=== PATIENT | female | born 1970 | race Caucasian/White ===

== ENCOUNTER 2016-12-17 07:17 | Day surgery (SDC) | payer OTHER ==
[~2016-12-17 07:17] MED LIST: Buffered Lidocaine 1% SYRIN* 3 ML/SYR SYRINGE INTRADERM ONE; Famotidine IV* 10 MG/ML 2 ML (20 mg) IV ONE
[2016-12-17] MEDS ORDERED: Famotidine IV* 10 MG/ML 2 ML (20 mg) ONE (07:21)
[2016-12-17 07:31] LABS: Manual Entry Verification AS; UR Preg Internal Control QC Line Present; UR Preg Kit Lot# 6030156
[2016-12-17] MEDS ORDERED: Silver Nitrate/Potassium Nitr* 1 EA STICK ONE (08:17)
[2016-12-17] MEDS ORDERED: Midazolam* 1 MG/ML 5 ML VIAL (5 MG) ONE (08:48)
[2016-12-17] MEDS ORDERED: Chloroprocaine 2%* 20 ML VIAL ONE (08:48)
[2016-12-17] MEDS ORDERED: fentaNYL* 50 MCG/ML 2 ML VIAL (100 MCG VIAL) ONE (08:48)
[2016-12-17] MEDS ORDERED: Dexamethasone IV* 4 MG/ML 1 ML (4 MG) ONE (09:16)
[2016-12-17] MEDS ORDERED: Ondansetron INJ* 2 MG/ML VIAL ONE (09:16)
[2016-12-17] MEDS ORDERED: Ketorolac INJ* 30 MG/ML 1 ML VIAL ONE (09:16)
[2016-12-17] MEDS ORDERED: DiMENhydriNATE IV* 50 MG/ML VIAL IV PUSH PRN (09:57)
[2016-12-17] MEDS ORDERED: Acetaminophen TAB* 325 MG PO PRN (09:57)
[2016-12-17] MEDS ORDERED: oxyCODONE TAB* 5 MG TAB PO PRN (09:57)
[2016-12-17] MEDS ORDERED: Acetaminophen TAB* 325 MG ONE (10:35)
[2016-12-17 11:34] VITALS: BP 132/87
--- NOTE | 2016-12-17 12:46 | OP ---
DATE OF OPERATION: 12/17/16 [facility] DATE OF : 68 SURGEON: Jaylene Davis MD ANESTHESIOLOGIST: Dr. Novoa. ANESTHESIA: Spinal. PRE-OP DIAGNOSIS: Submucosal fibroid and menorrhagia. POST-OP DIAGNOSIS: Submucosal fibroid and menorrhagia. OPERATIVE PROCEDURE: Hysteroscopy, dilation and curettage, and MyoSure resection of submucosal fibroid. ESTIMATED BLOOD LOSS: Less than 10 cc. URINE OUTPUT: 100 cc. IV FLUID: 800 cc of lactated Ringer's. MATERIALS TO LAB: Submucosal fibroid fragments and endometrial curettings. INDICATIONS: The patient is a 46-year-old 5, para 3, who presented to the office with complaint of progressively worsening heavy periods. Office hysteroscopy was significant for an apparent submucosal fibroid seen. Considering this, the patient was counseled and consented for hysteroscopic resection of the fibroid to hopefully improve her bleeding. She was extensively counseled and consent was signed. FINDINGS: Normal-appearing uterus other than a fairly large submucosal fibroid protruding from the anterior wall. This was likely 1.5 to 2 cm in size. This was resected without difficulty. COMPLICATIONS: None. DESCRIPTION OF PROCEDURE: The risks, benefits, and alternatives were described to the patient and informed consent was obtained. The patient was taken to the operating room with IV running where ____ anesthesia was induced and found to be adequate. The patient was prepped and draped in the normal sterile fashion in the high lithotomy position in [facility]. A time-out was performed. The bladder was emptied. A bivalved speculum was placed in the vagina and a single tooth tenaculum was placed on the anterior cervix. The cervix was then gently dilated using Reagan's dilators to a size 27. At that time, the MyoSure hysteroscope was advanced through the cervix and into the uterine cavity without difficulty. The anterior submucosal fibroid was immediately visible. There were no other apparent abnormalities present. A regular-sized MyoSure was then prepared and then placed into the MyoSure scope. An [email or web address] fluid management system was used for management of the saline. The MyoSure was then used to completely resect the submucosal fibroid to the level of the surrounding endometrium. There are no other visible abnormalities seen. Both ostium were clearly visible and appeared normal. The hysteroscope was then removed. Hysteroscopic deficit was about 250 cc of normal saline. A medium banjo curette was then used to perform a curettage of the endometrial cavity and the small amount of curettings were collected on Telfa. The tenaculum was then removed from the cervix and there was excellent hemostasis present. The speculum was removed and the patient was returned to the supine position. The patient tolerated the procedure well. Sponge, lap, and needle counts were correct x2. [id number]/[facility] #: [id number] [facility]
== END 2016-12-17 11:37 | disposition home or self-care (01) ==
LOC: OR 07:17
PROVIDERS: ATTEND Obstetrics & Gynecology
DX: D25.0 Submucous leiomyoma of uterus (principal); N92.0 Excessive and frequent menstruation with regular cycle
CPT/HCPCS: 81025; 88305; A9270-GY; J1100; J1885; J2250; J2400; J2405; J3010

== ENCOUNTER 2019-04-21 08:36 | Emergency (ER) | payer OTHER ==
[2019-04-21 08:45] VITALS: BP 169/87
--- NOTE | 2019-04-21 08:58 | UC ---
Throat Pain/Nasal Crow HPI - HPI Summary HPI Summary: started with ST 6 days ago, was tested for strep 4 days later and neg. over past [address] has gotten worse, fever and now R ear pain. took ibuprofen this am with little relief - History of Current Complaint Chief Complaint: UCRespiratory Stated Complaint: ST Time Seen by Provider: 04/21/19 08:39 Hx Obtained From: Patient Hx Last Menstrual Period: IUD ?: No Onset/Duration: Gradual Onset Severity: Moderate Pain Intensity: 8 Cough: None Associated Signs & Symptoms: Positive: Fever - Allergies/Home Medications Allergies/Adverse Reactions: Allergies Allergy/AdvReac Type Severity Reaction Status Date / Time erythromycin base Allergy GI Upset Verified 04/21/19 08:45 Penicillins Allergy Hives Verified 04/21/19 08:45 Home Medications: Home Medications Albuterol Sulfate [Albuterol Sulfate Hfa] 8.5 gm IH 04/21/19 [History] PMH/Surg Hx/FS Hx/Imm Hx Previously Healthy: Yes Respiratory History: Asthma - Surgical History Surgical History: Yes Surgery Procedure, Year, and Place: lithotripsy and kidney stents - Family History Known Family History: Positive: None - Social History Occupation: Employed Full-time Lives: With Family Alcohol Use: Rare Substance Use Type: None Smoking Status (MU): Never Smoked Tobacco - Immunization History Most Recent Influenza Vaccination: 2013 Most Recent Tetanus Shot: 2008 Most Recent Pneumonia Vaccination: 2011 Review of Systems All Other Systems Reviewed And Are Negative: Yes Constitutional: Positive: Fever Skin: Positive: Negative Eyes: Positive: Negative ENT: Positive: Sore Throat Respiratory: Positive: Negative Cardiovascular: Positive: Negative Psychological: Positive: Negative Is Patient Immunocompromised?: No Physical Exam Triage Information Reviewed: Yes Appearance: Well-Appearing, No Pain Distress, Well-Nourished Vital Signs: Initial Vital Signs Temp 97.9 F 04/21/19 08:41 Pulse 100 04/21/19 08:41 Resp 18 04/21/19 08:41 BP 169/87 04/21/19 08:41 Pulse Ox 97 04/21/19 08:41 Vital Signs Reviewed: Yes Eye Exam: Normal Eyes: Positive: Conjunctiva Clear ENT: Positive: Pharyngeal erythema, TM dull. Negative: Nasal congestion, Tonsillar exudate Neck exam: Normal Neck: Positive: No Lymphadenopathy Respiratory Exam: Normal Respiratory: Positive: Lungs clear Cardiovascular Exam: Normal Musculoskeletal Exam: Normal Neurological Exam: Normal Neurological: Positive: Alert Psychological Exam: Normal Skin Exam: Normal Throat Pain/Nasal Course/Dx - Differential Dx/Diagnosis Differential Diagnosis/HQI/PQRI: Otitis Media, Pharyngitis, Tonsillitis, URI Provider Diagnosis: Pharyngitis Discharge ED - Sign-Out/Discharge Documenting (check all that apply): Patient Departure All imaging exams completed and their final reports reviewed: No Studies - Discharge Plan Condition: Good Disposition: HOME Prescriptions: Azithromycin TAB* [Zithromax TAB (Z-SHAVON) 250 mg #6 tabs] 2 tab PO .TODAY, THEN 1 DAILY #1 shavon Fluconazole [Diflucan 150 MG (NF)] 150 mg PO ONCE #2 tab Patient Education Materials: Pharyngitis (ED) Referrals: Lena Burns MD [Primary Care Provider] - (recheck elevated blood pressure and sore throat) Additional Instructions: rest and drink plenty of fluids start zithromax and take as directed' use ibuprofen 600mg every 6 hours as needed for pain and fever - Billing Disposition and Condition Condition: GOOD Disposition: Home - Attestation Statements Provider Attestation: Per institutional requirements, I have reviewed the chart, however, I was not consulted specifically or made aware of this patient by the midlevel provider. I did not personally evaluate, interact with , or disposition this patient.
== END 2019-04-21 09:10 | disposition home or self-care (01) ==
LOC: UCEAST 08:36
DX: J02.9 Acute pharyngitis, unspecified (principal); R50.9 Fever, unspecified; H92.01 Otalgia, right ear; J45.909 Unspecified asthma, uncomplicated; Z88.1 Allergy status to other antibiotic agents; Z88.0 Allergy status to penicillin
CPT/HCPCS: 99212; G0463